=== PATIENT | male | born 1970 | race Caucasian/White ===

== ENCOUNTER 2025-04-16 21:18 | Emergency (ER) | payer OTHER ==
[~2025-04-16] VITALS: Ht 188 cm; Wt 95.4 kg
[2025-04-16] MEDS ORDERED: 0.9% SODIUM CHLORIDE 10 ML SYRINGE IVP PRN (21:45)
[2025-04-16] MEDS: SODIUM CHLORIDE 0.9% 2,850 ML IV ONE (21:45)
[2025-04-16] MEDS: MORPHINE SULFATE 4 MG/ML SYRINGE IVP ONE (22:00)
[2025-04-16] MEDS: ONDANSETRON HCL 4 MG/2 ML VIAL IVP ONE (22:00)
[2025-04-16 22:01] LABS: PLATELET COUNT (AUTO) 449 K/uL (150-450); RED BLOOD CELL COUNT(AUTO) 5.42 MIL/uL (4.50-5.90); RED CELL DISTRIBUTION WIDTH 13.5 % (11.5-14.5); WHITE BLOOD COUNT (AUTO) 14.7 K/uL (4.5-11.0)
[2025-04-16 22:03] LABS: CALCIUM, TOTAL 10.3 mg/dL (8.8-10.5); CREATININE 1.46 mg/dL (0.60-1.30); GLOMERULAR FILTR. RATE CALC 50 mL/min (>60); GLUCOSE,RANDOM 148 mg/dL (70-110); SODIUM SERUM 141 mmol/L (136-145); UREA NITROGEN, BLOOD 17 mg/dL (7-18)
[2025-04-16 22:10] LABS: ASPARTATE AMINOTRANSFERASE 18.0 U/L (15-37); TOTAL PROTEIN, SERUM 8.7 g/dL (6.4-8.2)
[2025-04-16 22:11] LABS: TROPONIN I-HIGH SENSITIVITY 4 ng/L (<76)
[2025-04-16 22:12] VITALS: BP 135/95; PULSE 115; RESP 20; TEMP 98.205296; O2SAT 100
[2025-04-16 22:13] LABS: LACTIC ACID 2.6 mmol/L (0.4-2.0)
[2025-04-16] MEDS: ONDANSETRON 4 MG TABLET PO ONE (22:25)
[2025-04-16] MEDS ORDERED: IOHEXOL 350 MG/ML 100 ML VIAL ONE (22:58)
[2025-04-16] MEDS ORDERED: SODIUM CHLORIDE 0.9% 100 ML ONE (22:58)
[2025-04-17 04:00] LABS: APPEARANCE,URINE CLEAR (CLEAR); GLUCOSE, URINE (UA) NEGATIVE (NEGATIVE); LEUKOCYTE ESTERASE ,URINE NEGATIVE (NEGATIVE); NITRATE,URINE NEGATIVE (NEGATIVE); OCCULT BLOOD,URINE NEGATIVE (NEGATIVE)
[2025-04-17 04:06] LABS: SPECIFIC GRAVITIY, URINE 1.050 (1.003-1.030)
[2025-04-17] MEDS ORDERED: ONDA-104 PO (04:16)
== END 2025-04-17 03:30 | disposition home or self-care (01) ==
LOC: EMS 21:18
DX: R10.9 Unspecified abdominal pain (principal); R11.2 Nausea with vomiting, unspecified; R06.02 Shortness of breath
CPT/HCPCS: 99285; 74177; 96374; 96361; 96375; 71045; 80048; 80076; 81003; 83605; 83690; 83880; 84484; 85025; 85610; 87040; 36415; 93005; 84145; Q9967; J1171; J2270; J2405; J7030; J7050